=== PATIENT | male | born 1950 | race Caucasian/White ===

== ENCOUNTER 2017-01-22 09:45 | Outpatient (CLI) | payer OTHER ==
[~2017-01-22 09:45] MED LIST: AMLODIPINE BESYL5 MG PO; HYCET1 ML PO
--- NOTE | 2017-01-22 11:36 | DIAGNOSTIC IMAGING REPORT ---
PROCEDURE: CT THORAX ABD PELVIS W/CONT INDICATION: BLADDER CA, follow-up. TECHNIQUE: 125 ml of Isovue 300 injected intravenously and axial images were obtained of the entire thorax, abdomen, and pelvis with sagittal and coronal reformations. COMPARISON: CT IVP 05/13/[address] abdomen/pelvis 07/07/2011.. FINDINGS: THORAX: Lungs are clear. No adenopathy or effusion. Normal thoracic aorta. Heart size is normal. Left subclavian Port-A-Cath in satisfactory position. Surgical fusion of the lower cervical spine. . ABDOMEN: 2 cm left hepatic lobe cyst. Contracted gallbladder. Pancreas, spleen, adrenal glands and kidneys are normal. Tortuous aorta. Small hiatal hernia. Surgical changes along the medial aspect of the cecum. 1.4 cm L4 sclerotic lesion (previously 1.2 cm on 07/07/2011). PELVIS: Moderate circumferential urinary bladder wall thickening but previously noted asymmetric thickening left anterolaterally has resolved. Enlarged prostate (5.2 cm). Mild sigmoid diverticulosis. No pelvic or inguinal adenopathy. No free fluid. No suspicious osseous lesions. IMPRESSION: 1. Moderate circumferential urinary bladder wall thickening which may represent postradiation changes/cystitis. Previously noted asymmetric lobulated thickening left anterolaterally has resolved. 2. Slight slow progression of L4 sclerotic lesion 3. Enlarged prostate 4. Mild sigmoid diverticulosis 5. Appendectomy 6. Left subclavian Port-A-Cath in satisfactory position. All CT scans at this facility use dose modulation, iterative reconstruction, and/or weight-based dosing when appropriate to reduce radiation dose to as low as reasonably achievable.
== END 2017-01-22 23:00 ==
LOC: CT SRH 09:45 → LAB SRH 09:45 → CT SRH 10:00
DX: Z85.51 Personal history of malignant neoplasm of bladder (principal); K57.30 Diverticulosis of large intestine without perforation or abscess without bleeding; Z90.89 Acquired absence of other organs
CPT/HCPCS: 90074; 91631; 92560